=== PATIENT | female | born 2000 | race Caucasian/White ===

== ENCOUNTER 2022-09-29 15:16 | Inpatient (IN) | payer SELFPAY ==
[~2022-09-29] VITALS: Ht 154.9 cm; Wt 49.9 kg
[2022-09-29] MEDS ORDERED: ONDANSETRON HCL/PF 4 MG/2 ML VIAL ONE (16:29)
[2022-09-29] MEDS ORDERED: IV NS 0.9% 1,000 ML BAG IV ONE (16:30)
[2022-09-29] MEDS ORDERED: ONDANSETRON HCL/PF 4 MG/2 ML VIAL IVP ONE (16:30)
[2022-09-29 16:42] LABS: BASOPHILS % (AUTO) 0.1 % (0.0-2.0); EOSINOPHILS % (AUTO) 0.6 % (0.0-6.0); HEMATOCRIT 41 % (33-45); LYMPHOCYTES # (AUTO) 0.5 K/uL (0.8-4.8); LYMPHOCYTES % (AUTO) 3.1 % (20.0-44.0); MEAN CORPUSCULAR HGB CONC 32 g/dl (31.0-36.0); MEAN CORPUSCULAR VOLUME 88 fL (82-100); MONOCYTES # (AUTO) 0.3 K/uL (0.1-1.30); MONOCYTES % (AUTO) 1.9 % (2.0-12.0); NEUTROPHILS # (AUTO) 16.2 K/uL (1.8-8.9); NEUTROPHILS % (AUTO) 94.3 % (43.0-81.0); PLATELET COUNT (AUTO) 382 K/uL (150-450); WHITE BLOOD COUNT (AUTO) 17.2 K/uL (4.3-11.0)
[2022-09-29 16:59] LABS: ALANINE AMINOTRANSFERASE 19 U/L (12-78); ALBUMIN 3.2 g/dL (3.4-5.0); ALKALINE PHOSPHATASE 90 U/L (46-116); ASPARTATE AMINOTRANSFERASE 15 U/L (15-37); BILIRUBIN,DIRECT 0.2 mg/dL (0.0-0.2); BILIRUBIN,TOTAL 0.8 mg/dL (0.2-1.0); CALCIUM, SERUM 8.4 mg/dL (8.5-10.1); CARBON DIOXIDE 30 mmol/L (21-32); CHLORIDE 104 mmol/L (98-107); CREATININE 0.8 mg/dL (0.6-1.3); GLUCOSE 105 mg/dL (74-106); POTASSIUM 4.1 mmol/L (3.5-5.1); SODIUM SERUM 137 mmol/L (136-145); TOTAL PROTEIN, SERUM 7.5 g/dL (6.4-8.2); UREA NITROGEN, BLOOD 9 mg/dL (7-18)
[2022-09-29 17:01] LABS: ACETAMINOPHEN 0 ug/ml (10-30)
--- NOTE | 2022-09-29 17:28 | NUR ---
PICKED UP FOR CT SCAN PROCEDURE
[2022-09-29] MEDS ORDERED: CEFTRIAXONE 2 G in IV D5W 50 ML IV ONE (19:00)
--- NOTE | 2022-09-29 19:00 | NUR ---
covid swab sent to lab [place] [facility] SENT O LAB
--- NOTE | 2022-09-29 19:19 | NUR ---
URINE SAMPLE COLLECTED AND SENT TO LAB
[2022-09-29] MEDS ORDERED: CEFTRIAXONE 2 G in IV D5W 100 ML IV ONE (19:30)
--- NOTE | 2022-09-29 20:06 | NUR ---
RCD PT SLEEPING
[2022-09-29] MEDS ORDERED: MAG HYDROX/AL HYDROX/SIMETH 30 ML UDC PO PRN (20:30)
[2022-09-29] MEDS ORDERED: MAGNESIUM HYDROXIDE 30 ML UDC PO PRN (20:30)
[2022-09-29] MEDS ORDERED: ZOLPIDEM TARTRATE 5 MG TABLET PO PRN (20:30)
[2022-09-29] MEDS ORDERED: ONDANSETRON HCL/PF 4 MG/2 ML VIAL IVP PRN (20:30)
[2022-09-29] MEDS ORDERED: Z GUARD REMEDY 4 OZ OINT TP PRN (20:30)
--- NOTE | 2022-09-29 20:56 | NUR ---
RAPID INFLUZ SENT TO LAB
--- NOTE | 2022-09-29 20:58 | NUR ---
URINE COLLECTED. SENT TO LABS
[2022-09-29] MEDS ORDERED: VANCOMYCIN 1 GM in IV D5W 250 ML IV ONE (21:00)
[2022-09-29 21:29] LABS: BILIRUBIN,URINE NEGATIVE (NEGATIVE); COLOR,URINE YELLOW (YELLOW); LEUKOCYTE ESTERASE ,URINE NEGATIVE (NEGATIVE); NITRITE, URINE POSITIVE (NEGATIVE); PROTEIN,URINE NEGATIVE (NEGATIVE); UGLUCOSE NEGATIVE (NEGATIVE); UROBILINOGEN,URINE 0.2 EU/dL (0.2)
[2022-09-29 22:05] LABS: BACTERIA,URINE Few /HPF (None Seen); SQUAMOUS EPITHELIAL CELL,UR Moderate /HPF (None Seen)
--- NOTE | 2022-09-29 22:07 | NUR ---
PT CONTUES TO SLEEP; EASILY AROUSABLE TO VERBAL STIMULI
--- NOTE | 2022-09-29 22:16 | NUR ---
CALLED LAB FOR COAG RESULTS STATE THEY HAVE IT AND WILL RELEASE SOON
[2022-09-29] MEDS ORDERED: VANCOMYCIN 1 GM VIAL ONE (22:40)
--- NOTE | 2022-09-29 22:57 | NUR ---
LUMBAR PUNCTURE CONSENT SIGNED BY PATIENT AND PLACED IN PT CHART
[2022-09-29] MEDS ORDERED: LIDOCAINE 1% INJ 50 ML MDV IJ ONE (23:02)
--- NOTE | 2022-09-29 23:05 | NUR ---
DR ROSENBAUM AT BEDSIDE DOING LUMBAR TAP
--- NOTE | 2022-09-29 23:15 | NUR ---
LUMBER PUNCTURE WAS DONE AT BED SIDE BY DR. ROSENBAUM PT WAS SITTENG POSTION AND BOTH ARMS WAS SPORTED BY TABLE IN PILLOW DONE CLEAR WHITE COLOR AND 4 TUBE SPCEMENT COLLECTED BY DR. ROSENBAUM SENT TO LAB DONE
--- NOTE | 2022-09-29 23:52 | NUR ---
shyla pain lying flat bandaid on LP SITE CLEAN no draning pt moving all extramity no weekness
--- NOTE | 2022-09-30 01:25 | NUR ---
REPORT GIVEN TO INO
--- NOTE | 2022-09-30 01:36 | NUR ---
PT TRANSPORTED TO TELE 101 VIA ACLS
--- NOTE | 2022-09-30 01:45 | NUR ---
RN NOTE RECEIVED PT VIA GURNEY FROM ER, PT WAS AWAKE, A/O X 2. ABLE TO VERBALIZE NEEDS. PT IS A LITTLE DISORIENTED BUT IS ABLE TO RESPOND TO QUESTIONS. ON O2 VIA NC AT 2L, TOLERATING WELL. SATING @ >95%. IV ACCESS NOTED @ RAC #20G, WITH ORDER OF NS @ 75 CC/HR. CARRIED OUT. PT'S SKIN IS INTACT WITH SKIN ABRASION NOTED ON HER RIGHT THIGH. PHOTO TAKEN AND PLACED ON PT'S CHART. INITIAL VS STABLE WITH LOW GRADE FEVER OF 99.8. WILL GIVE TYLENOL FOR INTERVENTION.
[2022-09-30] MEDS: ACETAMINOPHEN 325 MG TABLET PO PRN (02:09)
[2022-09-30] MEDS: IV NS 0.9% 1,000 ML IV PRN ×2 (02:09→15:46)
[2022-09-30 02:19] LABS: CSF PROTEIN 51.26 mg/dL (15-45)
[2022-09-30 04:00] VITALS: BP 125/61
--- NOTE | 2022-09-30 06:26 | NUR ---
RN NOTE PT IS STABLE AND NOW AFEBRILE. ALL NEEDS ATTENDED TO. TURNED AND REPOSITIONED. WILL ENDORSE TO AM SHIFT NURSE FOR [place].
--- NOTE | 2022-09-30 07:30 | NUR ---
DIAL SCREW ASSEMBLER AM NOTES PT IN BED, ASLEEP, RESPONDS TO NAME AND TOUCH, A/O X 4, ABLE TO MAKE NEEDS KNOWN, ON RA, O2 SAT AT >97%, NO SOB, RESPIRATION UNLABORED, SR ON MONITOR, DENIES PAIN AT THIS TIME. RT AC G20 IV ACCESS WITH NS AT 75 ML /HR INFUSING WELL, SITE CLEAR. DRIED ABRASIONS NOTED ON RIGHT THIGH, REGULAR DIET, ABLE TO AMBULATE TO BATHROOM, POC DISCUSSED, VERBALIZED UNDERSTANDING. FOR WOUND CARE CONSULT. ISOLATION PRECAUTION OBSERVED. SAFETY MEASURES IN PLACE. BED LOW LOCKED, SR UPX 2, CALL LIGHT WITHIN REACH. WILL CONT TO MONITOR.
[2022-09-30 07:32] LABS: BASOPHILS % (AUTO) 0.3 % (0.0-2.0); EOSINOPHILS % (AUTO) 0.9 % (0.0-6.0); HEMATOCRIT 35 % (33-45); HEMOGLOBIN 11.6 g/dL (11.5-14.8); LYMPHOCYTES # (AUTO) 1.8 K/uL (0.8-4.8); LYMPHOCYTES % (AUTO) 19.3 % (20.0-44.0); MEAN CORPUSCULAR HGB CONC 33 g/dl (31.0-36.0); MEAN CORPUSCULAR VOLUME 88 fL (82-100); MONOCYTES # (AUTO) 0.4 K/uL (0.1-1.30); MONOCYTES % (AUTO) 4.1 % (2.0-12.0); NEUTROPHILS # (AUTO) 6.8 K/uL (1.8-8.9); NEUTROPHILS % (AUTO) 75.4 % (43.0-81.0); PLATELET COUNT (AUTO) 341 K/uL (150-450); WHITE BLOOD COUNT (AUTO) 9.1 K/uL (4.3-11.0)
[2022-09-30 07:43] LABS: CALCIUM, SERUM 8.1 mg/dL (8.5-10.1); CREATININE 0.7 mg/dL (0.6-1.3); MAGNESIUM 2.1 mg/dL (1.8-2.4); POTASSIUM 3.7 mmol/L (3.5-5.1)
[2022-09-30 08:00] VITALS: BP 128/73
[2022-09-30 08:43] LABS: THYROID STIMULATING HORMONE 0.336 uIU/mL (0.358-3.74)
[2022-09-30 08:47] LABS: C-REACTIVE PROTEIN 6.1 mg/dL (0.0-0.9)
[2022-09-30] MEDS: VANCOMYCIN HCL 0.75 GM in IV D5W 250 ML IV SCH ×2 (09:10→16:17)
[2022-09-30] MEDS: CEFTRIAXONE 2 G in IV D5W 100 ML IV SCH ×2 (09:10→21:50)
--- NOTE | 2022-09-30 09:30 | NUR ---
RN NOTES DUE MEDS GIVEN
[2022-09-30 12:00] VITALS: BP 112/64
[2022-09-30] MEDS ORDERED: MORPHINE SULFATE INJ 2 MG/ML DISP.SYRIN IV PRN (13:00)
[2022-09-30] MEDS ORDERED: diphenhydrAMINE HCL 50 MG/ML VIAL IV PRN (13:00)
[2022-09-30] MEDS: BUTALB/APAP/CAFFEINE 1 EACH TABLET PO PRN ×2 (13:46→18:01)
[2022-09-30 15:14] LABS: CSF GLUCOSE 64 mg/dL (40-70); CSF PROTEIN 45.93 mg/dL (15-45)
[2022-09-30 16:00] VITALS: BP 118/69
--- NOTE | 2022-09-30 18:30 | NUR ---
RETAIL LINK ANALYST CLOSING NOTES PT IN BED, RESTING, A/O X 2-3, ABLE TO MAKE NEEDS KNOWN, ON RA, O2 SAT AT >97%, NO SOB, RESPIRATION UNLABORED, SR ON MONITOR, DENIES PAIN AT THIS TIME. RT AC G20 IV ACCESS WITH NS AT 75 ML /HR INFUSING WELL, SITE CLEAR. DRIED ABRASIONS NOTED ON RIGHT THIGH, KEPT CLEAN AND DRY, REGULAR DIET, ABLE TO AMBULATE TO BATHROOM. FOR WOUND CARE CONSULT. ISOLATION PRECAUTION OBSERVED. SAFETY MEASURES IN PLACE. BED LOW LOCKED, SR UPX 2, CALL LIGHT WITHIN REACH. ALL NEEDS MET, PM CARE DONE EARLIER. WILL ENDORSE OT NEXT SHIFT FOR [place].\
[2022-09-30 22:00] VITALS: BP 118/70
[2022-10-01] VITALS: BP 103/63
[2022-10-01] MEDS: VANCOMYCIN HCL 0.75 GM in IV D5W 250 ML IV SCH (02:15)
[2022-10-01 04:00] VITALS: BP 118/78
[2022-10-01 08:00] VITALS: BP 117/56
[2022-10-01] MEDS ORDERED: VANCOMYCIN 1 GM in IV D5W 250ml IV SCH (09:00)
[2022-10-01] MEDS: IV NS 0.9% 1,000 ML IV PRN ×2 (09:33→20:50)
[2022-10-01 09:35] LABS: BASOPHILS % (AUTO) 0.4 % (0.0-2.0); HEMATOCRIT 34 % (33-45); HEMOGLOBIN 11.3 g/dL (11.5-14.8); LYMPHOCYTES # (AUTO) 1.5 K/uL (0.8-4.8); LYMPHOCYTES % (AUTO) 14.4 % (20.0-44.0); MEAN CORPUSCULAR HGB CONC 34 g/dl (31.0-36.0); MEAN CORPUSCULAR VOLUME 88 fL (82-100); MONOCYTES # (AUTO) 0.5 K/uL (0.1-1.30); NEUTROPHILS % (AUTO) 78.2 % (43.0-81.0); PLATELET COUNT (AUTO) 331 K/uL (150-450); RED BLOOD CELL COUNT(AUTO) 3.84 MIL/uL (4.0-5.2); WHITE BLOOD COUNT (AUTO) 10.2 K/uL (4.3-11.0)
[2022-10-01 10:26] LABS: CREATININE 0.7 mg/dL (0.6-1.3); MAGNESIUM 1.9 mg/dL (1.8-2.4); POTASSIUM 3.9 mmol/L (3.5-5.1)
[2022-10-01 12:00] VITALS: BP 118/69
[2022-10-01 16:00] VITALS: BP 128/71
--- NOTE | 2022-10-01 18:50 | NUR ---
PT. PULLED OUT RAC IV LINE, DENIES PAIN, STRONGLY REFUSING REINSERTION; CHARGE NURSE AWARE.
[2022-10-01 20:00] VITALS: BP 121/68
--- NOTE | 2022-10-01 20:51 | NUR ---
HOME CARE COMPANION RCD PT WITHOUT IV ACCESS; PT REFUSES IV INSERTION. UNABLE TO ADMINISTER IV FLUIDS AND ANTIBIOTICS.
[2022-10-01] MEDS ORDERED: CEFTRIAXONE 2 G in IV D5W 100 ML IV SCH (21:00)
[2022-10-02] VITALS: BP 110/64
[2022-10-02 04:00] VITALS: BP 120/76
--- NOTE | 2022-10-02 05:43 | NUR ---
TRAY SERVER PT DECLINED BLOOD DRAW; EDUCATED PT ON THE NEED TO BE MONITORED HOWEVER PT LACKED MOTIVATION AND CONCERN AND JUST ASKING FOR A QUIET PLACE TO REST.
--- NOTE | 2022-10-02 06:23 | NUR ---
DIRECTOR OF CARDIAC CATH LAB PT VERBALLY ABUSIVE AND AGGRESSIVE TOWARDS STAFF
[2022-10-02] MEDS: ACETAMINOPHEN 325 MG TABLET PO PRN (06:26)
--- NOTE | 2022-10-02 07:46 | NUR ---
HOUSEKEEPING MANAGER OPENING NOTE PT IN BED, A/O X4.ABLE TO MAKE NEEDS KNOWN. ON ROOM AIR TOLERATING WELL. DENIES ANY PAIN OR DISCOMFORT AT THIS TIME. PT DOESNT HAVE IV ACCESS CURRENTLY.PT REFUSES TO TALK ABOUT PLAN OF CARE CURRENTLY. PER ENDORSEMENT FROM PRESALES ENGINEER RN, PT IS NONCOMPLIANT AND REFUSING IV ACCESS. CHARGE NURSE AWARE. ALL SAFETY MEASURES IN PLACE. BED LOCKED AND IN LOWEST POSITION. SIDE RAILS UP X2. CALL LIGHT WITHIN REACH. BED ALARM ON
[2022-10-02 08:00] VITALS: BP 132/72
[2022-10-02] MEDS ORDERED: MUPIROCIN OINT 2% 22 GM TUBE NS SCH ×2 (09:00→13:30)
[2022-10-02] MEDS ORDERED: LEVOFLOXACIN (250MG) 250 MG TABLET PO SCH (10:00)
--- NOTE | 2022-10-02 12:39 | NUR ---
pt refused lab draw at this time
--- NOTE | 2022-10-02 13:08 | NUR ---
PATIENT STILL REFUSING LAB DRAW AWARE .
--- NOTE | 2022-10-02 13:40 | NUR ---
Software Release Manager Consult SW received a consult request for homelessness. Pt. is a 22-year-old white female who admitted for altered mental status. SW met with pt. at bed side. Pt. is alert and oriented x2. Pt. appears confused, with a labile mood and irritable mood. Pt. stated that she was "faded." SW inquired hx of drug use in which pt. did not respond to. Pt. complained that there were "too many people talking" during assessment but only SW was in the room. SW attempted to confirm demographic information but pt was unable to confirm or provide information, pt. stated she had nowhere to go. Pt. appeared to have visual and auditory hallucinations during assessment. DR. Porter came in during this time to assess pt and SW stepped out of the room. Dr. Porter discussed with SW and nurse, that pt. is experiencing schizophrenic sxs and would benefit from a psychiatric hospital to support with her sxs. [facility] agreed to offer psych placement. MANI attempted to continue assessment with pt. Pt. was unable to cooperate with assessment and began to cry because she was confused and didn't have a place to stay. SW validated pt. and provided emotional support. SW attempted to assess for suicidal ideation and homicidal ideation in which pt. was unable to respond. DC plan: MANI offered pt. skilled nursing placement, psychiatric placement, as well as homeless resources, and mental health resources. MANI provided pt. with directions to [facility] ( [address] [place] [address]). Pt. accepted. MANI will fax clinicals to [facility] for voluntary psych placement. MANI discussed with nurse Chikis, Nurse will support pt. in getting clothing before discharge. Nurse will provide pt. with a TAP card before discharge. Year-round shelters: [facility] [address] [place], [place] [id number] ; [place] [facility] [address] [place] [address]; [facility] [place] [facility] [address] [facility]. [facility] [address] Hygiene: [facility]: [address] [place] ; [facility] [address] [facility] ; [facility] [address] . Food Resources: [place] [facility] at [facility]- [address] [place]; Meet Each Need with Dignity ([facility]) [address] [place]; [facility] [address] [facility]; [facility] [place] [address] [place]. Mental Health resources provided: [facility] [address] [place], [place] [phone] ; [facility] [address] [facility] [address], [place], [place] [id number] ; [facility] Mental [facility] [address] [facility] [place], [place] [id number] ; [facility] [address] [place], [place] [id number] Healthcare Clinics: [facility] [address] [facility], [address] [place]. [place] ; [facility] [address] [place] [address]; [facility] [place] [address] [facility] [address] [facility]. [place] [phone] Counseling[facility] [address], [address] [place], [place] [address] (Specializes in in-depth psychotherapy for emotional distress: anxiety, depression, interpersonal conflicts, life transitions, childhood abuse) [facility] [address] [place] [address] (Assist with solving problem marital difficulties, separation & divorce, aging parents, & grief, chronic & terminal illness) [facility] [address] [place] [address] (Deal with loss & grief, anxiety, marital difficulties) Homebound/Mental Health Services [address] [facility], [address] [place], [place] [id number] (Provide in-home mental services to people who are incapable of leaving their homes) [facility] [address] [place], [place] [phone] [facility] [address] [place] [address] PSYCHIATRIC OUTPATIENT SERVICES [facility] Partial Hospitalization and Intensive Outpatient Program (Managed Care and [place] Only)[address] [facility] [phone] [facility] Partial Hospitalization and Outpatient [address] [place], [place] [phone] [facility] [place] [address] [place], [place] [phone] [facility] Partial Hospitalization and Outpatient Aridmks[address] [place], [phone] Substance Abuse resources provided included: [facility] Substance Abuse Self-Helpline ([facility]) ; [facility] [address] [facility]. [place] [address] ; [facility] [address] [facility] [address] ; [facility] Rehabilitation [facility] [address] [address] ; [facility] [address] [facility] [address] ; [facility] [address] [facility] [address] ; [facility] [address] [facility] [address] ; [facility] Substance Abuse Helpline([facility] ; [facility] ; [facility] [place]; [facility] [place]; [facility] [place]; [facility] [place]; [facility] [place] [place]; [facility] [place]; [facility], [facility]. Theodore Mcfar[place]; Alcoholics Anonymous -[facility]; Tiff ; Marijuana Anonymous -[facility]; Narcotics Anonymous www.[email or web address];
--- NOTE | 2022-10-02 14:50 | NUR ---
Psych hospital Referral: MANI faxed clinicals to [facility] TEL:[phone] fax:[phone] for voluntary psychiatric [facility] [[facility] [place] [address] FAX:[phone]] per psychiatrist recommendation.
--- NOTE | 2022-10-02 15:31 | NUR ---
rn note per psychiatric social worker, psychiatric social worker faxed over clinical information to psychiatric hospitals. waiting for response
[2022-10-02 16:00] VITALS: BP 124/66
--- NOTE | 2022-10-02 17:00 | NUR ---
rn note pt in [facility], pt said did not want to still here another night. clinical social work therapist provided resources for shelters and faxed over clinical paperwork to psychiatric hospitals. patient decided to go to [facility], provided printed copy of directions.. hospital security provided directions to bus stop. patient noncompliant and refused overall nursing care, refused lab draws, and photos taken. provided clothes for patient. provided tap card. pt refused to sign homeless waiver form. nursing supervisor harvesting and tank charger aware Addendum: 10/02/22 at 1710 by LONNIE MIXON RN pt stable condition
[2022-10-02] MEDS ORDERED: OLANZAPINE 10 MG TABLET PO SCH (22:00)
[2022-10-03 15:07] LABS: *CRYPTOCOCCUS AG, CSF Negative (Negative)
== END 2022-10-02 17:34 | disposition home or self-care (01) | DRG 917 ==
LOC: ER 15:18 → TELE1 20:56 → MEDSG1 10-02 09:33
PROVIDERS: ADMIT Nurse Practitioner Acute Care; ATTEND Internal Medicine
PROC: 00JU3ZZ Inspection of Spinal Canal, Percutaneous Approach (ICD-10-PCS; principal; 2022-09-29)
DX: T50.901A Poisoning by unspecified drugs, medicaments and biological substances, accidental (unintentional), initial encounter (principal); G92.8 Other toxic encephalopathy; R65.10 Systemic inflammatory response syndrome (SIRS) of non-infectious origin without acute organ dysfunction; F20.0 Paranoid schizophrenia; Y92.89 Other specified places as the place of occurrence of the external cause; Z20.822 Contact with and (suspected) exposure to COVID-19; F19.129 Other psychoactive substance abuse with intoxication, unspecified; Z59.02 Unsheltered homelessness; J32.0 Chronic maxillary sinusitis; F41.9 Anxiety disorder, unspecified
CPT/HCPCS: 36415; 70450-TC; 71045-TC; 72125-TC; 80048-TC; 80076-TC; 80202-TC; 81001; 82945-TC; 83605-TC; 83735-TC; 84155-TC; 84439-TC; 84443-TC; 84702-TC; 84703-TC; 85025-TC; 85652-TC; 85730-TC; 86140-TC; 86592; 86593; 86694; 86706; 86803; 87040-TC; 87070-TC; 87081-TC; 87086-TC; 87186-TC; 87536; 87806; 87899; 89051-TC; 94799-TC; 97110-TC; 97116-TC; 97530-TC; C9803; G0378; G0480; J0696; J2405; J3370; J3490; J7030; J7060